=== PATIENT | female | born 1980 | race Caucasian/White ===

== ENCOUNTER 2017-02-04 10:40 | Emergency (ER) | payer OTHER, MEDICAID ==
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
[2017-02-04 11:03] VITALS: RESP 20; BMI 36.0
--- NOTE | 2017-02-04 11:56 | RAD ---
HISTORY: chest pain COMPARISON: No prior. TECHNIQUE: Chest PA and lateral FINDINGS: LUNGS: No active pulmonary disease. PLEURA: No significant pleural effusion identified. No pneumothorax apparent. CARDIOVASCULAR: Normal. OSSEOUS STRUCTURES: No significant abnormalities. VISUALIZED UPPER ABDOMEN: Normal. OTHER FINDINGS: None. IMPRESSION: No acute cardiopulmonary disease appreciated.
[2017-02-04 12:19] VITALS: BP 109/79; PULSE 76; TEMP 98.1; O2SAT 100
== END 2017-02-04 12:13 | disposition home or self-care (01) ==
LOC: C.ER 10:40
DX: S20.212A Contusion of left front wall of thorax, initial encounter (principal); S90.512A Abrasion, left ankle, initial encounter; V89.2XXA Person injured in unspecified motor-vehicle accident, traffic, initial encounter

== ENCOUNTER 2018-06-28 12:04 | Outpatient (CLI) | payer MEDICAID | END 2018-06-28 12:05 | disposition home or self-care (01) | LOC: C.PAT 12:04 | DX: D48.7 Neoplasm of uncertain behavior of other specified sites (principal) ==

== ENCOUNTER 2018-07-03 08:12 | Day surgery (SDC) | payer MEDICAID ==
[2018-07-03 09:50] VITALS: BMI 41.0
[2018-07-03] MEDS ORDERED: Bupivacaine 0.25% 20 ML INJ IJ ONE (10:10)
[2018-07-03] MEDS ORDERED: ceFAZolin 1 gm in NS 2 GM/200 ML BAG IVPB ONE (10:10)
[2018-07-03] MEDS ORDERED: Bacitracin Ointment 30 GM TUBE ONE (10:10)
[2018-07-03] MEDS ORDERED: Propofol 10 mg/ml Inj (20 ML) ONE (11:23)
[2018-07-03] MEDS ORDERED: Midazolam 2 MG/2 ML VIAL ONE (11:25)
[2018-07-03] MEDS ORDERED: ePHEDrine 50 mg/ml Inj ONE (11:34)
[2018-07-03] MEDS ORDERED: HYDROmorphone 0.5 mg/0.5 ml ISec IVP PRN (12:09)
[2018-07-03] MEDS ORDERED: Oxycodone/Acetaminophen 5/325 mg Tab PO PRN (12:54)
[2018-07-03 13:44] VITALS: RESP 18; TEMP 97.7; O2SAT 96
[2018-07-03 15:32] VITALS: BP 121/80; PULSE 81
--- NOTE | 2018-07-07 19:40 | OP ---
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 PROCEDURE PERFORMED: Wide and deep excision of soft tissue tumors of the left wrist and bilateral ankles. SURGEON: Nikolay Peterson MD ANESTHESIA: General. BLOOD LOSS: 40 mL. POSTOPERATIVE CONDITION: Stable. INDICATIONS FOR SURGERY: This is a 38-year-old female who presents with a painful left wrist mass as well as two similar masses in her left and right ankles. She will now undergo wide and deep excision of all. DESCRIPTION OF PROCEDURE: The patient was taken to the operating room. General anesthesia was administered in the left wrist, and bilateral ankles were prepped and draped. An elliptical incision was made in the left wrist. The mass was excised into the fascia and removed. Bleeding was controlled using the Bovie. Larger blood vessels were repaired. Tissue flaps were raised and an adjacent tissue transfer closure was performed in multiple layers with Monocryl, subcuticular Monocryl and glue. The above was repeated on a mass in the left and also on the right ankle. The patient tolerated the procedure well and returned to recovery room in stable condition. Nikolay Peterson MD
== END 2018-07-03 14:10 | disposition home or self-care (01) ==
LOC: C.SDS 08:12
PROVIDERS: ATTEND Surgery
DX: D21.21 Benign neoplasm of connective and other soft tissue of right lower limb, including hip (principal); D21.22 Benign neoplasm of connective and other soft tissue of left lower limb, including hip; E11.9 Type 2 diabetes mellitus without complications
CPT/HCPCS: 28090; 82948; 88307; J0690; J1170; J2001; J2250; J2405; J2704; J3010; J7120

== ENCOUNTER 2018-07-10 11:47 | Emergency (ER) | payer MEDICAID ==
[2018-07-10 12:08] VITALS: BMI 41.3
--- NOTE | 2018-07-10 12:40 | C.PDOC ---
History Of Present Illness 38 y/o female is sent here by Dr. Peterson for left lower leg wound check. Patient states she had abscess removal done by Dr. Peterson on left lower leg. She denies any other complaints at this time. Time Seen by Provider: 07/10/18 12:12 Chief Complaint (Nursing): Abnormal Skin Integrity History Per: Patient History/Exam Limitations: no limitations Onset/Duration Of Symptoms: Days Current Symptoms Are (Timing): Still Present Past Medical History Reviewed: Historical Data, Nursing Documentation, Vital Signs Vital Signs: Last Vital Signs Temp 98.0 F 07/10/18 12:08 Pulse 103 H 07/10/18 12:08 Resp 20 07/10/18 12:08 BP Pulse Ox 98 07/10/18 12:08 Primary Care Provider: Erika Borja - Medical History PMH: Gall Bladder Disease, HTN, Migraine Denies: Chronic Kidney Disease Surgical History: Cholecystectomy Family History: States: No Known Family Hx - Social History Hx Alcohol Use: No Hx Substance Use: No - Immunization History Hx Tetanus Toxoid Vaccination: No Hx Influenza Vaccination: No Hx Pneumococcal Vaccination: No Review Of Systems Except As Marked, All Systems Reviewed And Found Negative. Constitutional: Negative for: Fever, Chills Musculoskeletal: Positive for: Other (left lower leg wound) Neurological: Negative for: Weakness, Numbness Physical Exam - Physical Exam Appears: Non-toxic, No Acute Distress Skin: Warm, Dry Head: Normacephalic Eye(s): bilateral: Normal Inspection Oral Mucosa: Moist Neck: Supple Cardiovascular: Rhythm Regular Respiratory: Normal Breath Sounds Extremity: Other (healing wound on left lower leg with serous drainage) Extremity: Bilateral: Normal Color And Temperature Neurological/Psych: Oriented x3, Normal Speech, Normal Motor, Normal Sensation ED Course And Treatment - Laboratory Results Result Diagrams: 07/10/18 13:01 07/10/18 13:01 Lab Interpretation: Normal O2 Sat by Pulse Oximetry: 98 (RA) Pulse Ox Interpretation: Normal Progress Note: Case discussed and patient evaluated by Dr rabago who recommends discharge home with antibiotic. Treated with bactrim PO Reassessment Condition: Improved - Physician Consult Information Physician Contacted: Nikolay Peterson Outcome Of Conversation: discharge Medical Decision Making Medical Decision Making: Plan: --Labs --Ancef 12:30 Dr. Peterson is in the ER, ordered to give patient Ancef. Disposition Discussed With : Nikolay Peterson Doctor Will See Patient In The: Hospital Counseled Patient/Family Regarding: Studies Performed, Diagnosis, Need For Followup, Rx Given - Disposition Referrals: Nikolay Peterson MD [Staff Provider] - Disposition: HOME/ ROUTINE Disposition Time: 14:00 Condition: STABLE Prescriptions: Sulfamethoxazole/Trimethoprim [Bactrim DS 800 mg-160 mg] 1 tab PO BID #14 tab Instructions: Cellulitis and Erysipelas (Skin Infections) Forms: [employer] ([place]an) Print Language: THAI - POA Present On Arrival: None - Clinical Impression Clinical Impression: Cellulitis - 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 - Scribe Statement The provider has reviewed the documentation as recorded by the Scribflorinda Dsouza All medical record entries made by the Nikaibflorinda were at my direction and personally dictated by me. I have reviewed the chart and agree that the record accurately reflects my personal performance of the history, physical exam, medical decision making, and the department course for this patient. I have also personally directed, reviewed, and agree with the discharge instructions and disposition.
[2018-07-10 13:08] LABS: BASO % 0.4 % (0.0-2.0); EOS # 0.1 K/uL (0.0-0.7); EOS % 1.3 % (0.0-4.0); HEMOGLOBIN 14.5 g/dL (11.0-16.0); LYMPH # 1.3 K/uL (1.0-4.3); LYMPH % 12.5 % (20.0-40.0); MEAN CELL VOLUME 90.2 fL (81.0-99.0); MEAN CORPUSCULAR HEMOGLOBIN 30.6 pg (27.0-31.0); MEAN PLATELET VOLUME 9.5 fL (7.2-11.7); MONO # 0.5 K/uL (0.0-0.8); MONO % 4.3 % (0.0-10.0); NEUT # 8.7 K/uL (1.8-7.0); NEUT % 81.5 % (50.0-75.0); RBC 4.72 Mil/uL (3.80-5.20); RED CELL DISTRIBUTION WIDTH 13.1 % (11.5-14.5); WHITE BLOOD COUNT 10.7 K/uL (4.8-10.8)
[2018-07-10 13:21] LABS: BLOOD UREA NITROGEN 9 mg/dL (7-17); CALCIUM 9.2 mg/dl (8.6-10.4); GFR NON-AFRICAN AMERICAN > 60
[2018-07-10] MEDS ORDERED: ceFAZolin 1 gm in NS 1 GM/100 ML BAG IVPB ONE (13:35)
[2018-07-10] MEDS ORDERED: Tmp-Smz 800 mg-160 mg DS Tab PO SCH (13:45)
[2018-07-10] MEDS ORDERED: Tmp-Smz 800 mg-160 mg DS Tab ONE (14:00)
[2018-07-10 14:13] VITALS: BP 118/70; PULSE 97; RESP 18; TEMP 98.8
[2018-07-10 15:19] VITALS: O2SAT 98
== END 2018-07-10 14:14 | disposition home or self-care (01) ==
LOC: C.ER 11:47
DX: L03.116 Cellulitis of left lower limb (principal)
CPT/HCPCS: 80048; 81025; 85025; 96365; 99284; J0690